=== PATIENT | female | born 1960 | race Caucasian/White ===

== ENCOUNTER 2017-12-10 04:11 | Emergency (ER) | payer MEDICAID ==
[~2017-12-10] VITALS: Ht 165.1 cm; Wt 52.3 kg
[~2017-12-10 04:11] MED LIST: LITH300C PO
[2017-12-10 04:13] VITALS: BP 154/92
== END 2017-12-10 05:59 | disposition left against medical advice (07) ==
LOC: ED 05:45
DX: L03.211 Cellulitis of face (principal); M79.5 Residual foreign body in soft tissue
CPT/HCPCS: 99283

== ENCOUNTER 2018-05-27 06:29 | Emergency (ER) | payer MEDICAID ==
[~2018-05-27] VITALS: Ht 162.6 cm; Wt 56.0 kg
[2018-05-27] MEDS ORDERED: PROMETHAZINE 25 MG/ML, 1ML ONE (07:00)
[2018-05-27] MEDS ORDERED: PROMETHAZINE 25 MG/ML, 1ML IM ONE (07:00)
[2018-05-27] MEDS ORDERED: KETOROLAC 30 MG/1 ML IM ONE (07:00)
[2018-05-27] MEDS ORDERED: KETOROLAC 30 MG/1 ML ONE (07:00)
[2018-05-27 08:10] VITALS: BP 136/79
== END 2018-05-27 08:29 | disposition home or self-care (01) ==
LOC: ED 07:32
DX: G43.009 Migraine without aura, not intractable, without status migrainosus (principal); F31.9 Bipolar disorder, unspecified
CPT/HCPCS: 96372; 99283; J1885; J2550